=== PATIENT | female | born 1985 | race Caucasian/White ===

== ENCOUNTER → 2019-12-07 | Outpatient (CLI) | payer BC ==
[~2019-12-07] MED LIST: HYDR1TAB75 PO
--- NOTE | 2019-12-07 13:09 | Diagnostic Imaging Report ---
INDICATION: Routine screening. COMPARISON: No prior mammograms are available for comparison. This is a baseline study. TECHNIQUE: 2D and 3D bilateral screening mammography was performed with CAD. FINDINGS: Both breasts are heterogeneously dense, limiting the sensitivity of mammography. A slightly asymmetric density in the lower and outer aspect of the left breast at mid to posterior depth is noted. Additional views are recommended. This most likely represents superimposed tissue. No suspicious microcalcifications are seen. The axillae are unremarkable. The right breast is unremarkable. IMPRESSION: Left breast density. Additional views are recommended for further evaluation. ACR BI-RADS Category 0: Incomplete. (Needs additional imaging evaluation). Result letter will be mailed to the patient. Note: At least 10% of breast cancer is not imaged by mammography. Dictated by: Dictated on workstation # [id number]
== END ==
LOC: RAD 10:32
PROVIDERS: ATTEND Obstetrics & Gynecology
DX: Z12.31 Encounter for screening mammogram for malignant neoplasm of breast (principal); N63.20 Unspecified lump in the left breast, unspecified quadrant
CPT/HCPCS: 77067

== ENCOUNTER → 2019-12-28 | Outpatient (CLI) | payer BC ==
--- NOTE | 2019-12-28 14:29 | Diagnostic Imaging Report ---
INDICATION: Abnormal mammogram. TECHNIQUE: Multiple real-time grayscale images were obtained over the left breast in the 3-4 o'clock position. FINDINGS: There is no evidence of discrete solid or cystic mass in left breast. IMPRESSION: Category 1 negative. Negative left breast ultrasound. ACR BI-RADS Category 1: Negative. Result letter will be mailed to the patient. Note: At least 10% of breast cancer is not imaged by mammography. Dictated by: Dictated on workstation # [id number]
--- NOTE | 2019-12-28 14:53 | Diagnostic Imaging Report ---
INDICATION: Abnormal screening mammogram. COMPARISON: 12/07/2019. TECHNIQUE: Digital diagnostic mammography was performed of the left breast with a Computer Aided Detection (CAD) system. FINDINGS: Spot compression views of the left breast were obtained in the CC and MLO projections. There are scattered fibroglandular densities. The previously described density appears to be superimposed fibroglandular tissue as no persistent mass is appreciated. Ultrasound was also performed which was negative. IMPRESSION: Negative diagnostic mammogram. The patient should resume bilateral screening mammography in November 2020. ACR BI-RADS Category 1: Negative. Result letter will be mailed to the patient. Note: At least 10% of breast cancer is not imaged by mammography. Dictated by: Dictated on workstation # [id number]
== END ==
LOC: RAD 13:30
PROVIDERS: ATTEND Obstetrics & Gynecology
DX: R92.8 Other abnormal and inconclusive findings on diagnostic imaging of breast (principal)
CPT/HCPCS: 76642

== ENCOUNTER → 2021-01-18 | Outpatient (CLI) | payer BC ==
[2021-01-18 12:38] LABS: BILIRUBIN,TOTAL 0.5 MG/DL (0.1-1.0); BUN/CREATININE RATIO 19; CALCIUM 9.5 MG/DL (8.5-10.1); CARBON DIOXIDE 22 MMOL/L (21-32); CHLORIDE 104 MMOL/L (98-107); CREATININE SERUM 0.68 MG/DL (0.60-1.30); GFR ESTIMATED > 60; GLUCOSE 96 MG/DL (70-105); POTASSIUM 4.2 MMOL/L (3.6-5.0); SODIUM 138 MMOL/L (135-145)
[2021-01-18 12:39] LABS: ALANINE AMINOTRANSFERASE 100 U/L (0-55); ALBUMIN 4.5 GM/DL (3.2-4.5); ALKALINE PHOSPHATASE 49 U/L (40-136); TOTAL PROTEIN 7.4 GM/DL (6.4-8.2)
[2021-01-18 15:10] LABS: CHOLESTEROL 247 MG/DL (< 200); HDL CHOLESTEROL 61 MG/DL (40-60); TRIGLYCERIDES 95 MG/DL (<150); VLDL CHOLESTEROL 19 MG/DL (5-40)
== END ==
LOC: LAB FS 11:50
PROVIDERS: ATTEND Obstetrics & Gynecology
DX: E78.00 Pure hypercholesterolemia, unspecified (principal); R74.8 Abnormal levels of other serum enzymes
CPT/HCPCS: 36415; 80053; 80061

== ENCOUNTER → 2021-01-20 | Outpatient (CLI) | payer BC ==
[2021-01-20 20:33] LABS: HEPATITIS C ANTIBODY C Non-Reactive (Non-Reactive)
== END ==
LOC: LAB FS 09:04
PROVIDERS: ATTEND Obstetrics & Gynecology
DX: R74.8 Abnormal levels of other serum enzymes (principal)
CPT/HCPCS: 36415; 80074

== ENCOUNTER → 2021-03-27 | Outpatient (CLI) | payer BC ==
[2021-03-27 15:06] LABS: CHOLESTEROL 219 MG/DL (< 200); HDL CHOLESTEROL 73 MG/DL (40-60); TRIGLYCERIDES 81 MG/DL (<150); VLDL CHOLESTEROL 16 MG/DL (5-40)
== END ==
LOC: LAB FS 10:26
PROVIDERS: ATTEND Obstetrics & Gynecology
DX: E78.00 Pure hypercholesterolemia, unspecified (principal)
CPT/HCPCS: 36415; 80061

== ENCOUNTER → 2021-09-04 | Outpatient (CLI) | payer BC ==
[2021-09-04 15:19] LABS: TRIGLYCERIDES 89 MG/DL (<150); VLDL CHOLESTEROL 18 MG/DL (5-40)
[2021-09-04 15:24] LABS: CHOLESTEROL 163 MG/DL (< 200)
[2021-09-04 15:25] LABS: HDL CHOLESTEROL 65 MG/DL (40-60)
== END ==
LOC: LAB FS 08:05
PROVIDERS: ATTEND Obstetrics & Gynecology
DX: E78.00 Pure hypercholesterolemia, unspecified (principal)
CPT/HCPCS: 36415; 80061

== ENCOUNTER → 2022-07-26 | Outpatient (CLI) | payer BC ==
[2022-07-26 09:17] LABS: BASOPHILS # (AUTO) 0.1 10^3/uL (0.0-0.1); BASOPHILS % (AUTO) 1 % (0-10); EOSINOPHILS # (AUTO) 0.2 10^3/uL (0.0-0.3); EOSINOPHILS % (AUTO) 2 % (0-10); HEMATOCRIT 39 % (35-52); LYMPHOCYTES # (AUTO) 2.8 10^3/uL (1.0-4.0); LYMPHOCYTES % (AUTO) 37 % (12-44); MEAN CORPUSCULAR HEMOGLOBIN 31 pg (25-34); MEAN CORPUSCULAR HGB CONC 34 g/dL (32-36); MEAN CORPUSCULAR VOLUME 94 fL (80-99); MEAN PLATELET VOLUME 10.9 fL (9.0-12.2); MONOCYTES # (AUTO) 0.6 10^3/uL (0.0-1.0); MONOCYTES % (AUTO) 8 % (0-12); NEUTROPHILS # (AUTO) 3.8 10^3/uL (1.8-7.8); NEUTROPHILS % (AUTO) 52 % (42-75); PLATELET COUNT 287 10^3/uL (130-400); WHITE BLOOD COUNT 7.4 10^3/uL (4.3-11.0)
[2022-07-26 10:02] LABS: ALBUMIN 4.5 GM/DL (3.2-4.5); BILIRUBIN,TOTAL 0.4 MG/DL (0.1-1.0); CALCIUM 9.4 MG/DL (8.5-10.1); CREATININE SERUM 0.6 MG/DL (0.60-1.30); POTASSIUM 4.2 MMOL/L (3.6-5.0); TOTAL PROTEIN 7.3 GM/DL (6.4-8.2)
== END ==
LOC: LAB FS 08:22
PROVIDERS: ATTEND Obstetrics & Gynecology
DX: Z00.00 Encounter for general adult medical examination without abnormal findings (principal)
CPT/HCPCS: 36415; 80053; 80061; 84443; 85025

== ENCOUNTER → 2022-10-09 | Outpatient (CLI) | payer BC ==
--- NOTE | 2022-10-09 13:41 | Diagnostic Imaging Report ---
INDICATION: Acute cough. COMPARISON: None available. TECHNIQUE: Frontal and lateral radiographs of the chest dated 10/09/2022. FINDINGS: The cardiac silhouette is within normal limits in size. No significant pulmonary vascular congestion. The lungs are clear. No pleural effusion. No pneumothorax. No acute osseous abnormality. IMPRESSION: No acute cardiopulmonary abnormality. Dictated by: Dictated on workstation # [id number]
== END ==
LOC: RAD FS 09:05
PROVIDERS: ATTEND Nurse Practitioner Family
DX: R05.1 Acute cough (principal)
CPT/HCPCS: 71046